=== PATIENT | male | born 2000 | race Caucasian/White ===

== ENCOUNTER 2021-07-16 18:21 | Emergency (ER) | payer OTHER, SELFPAY ==
[2021-07-16 18:23] VITALS: BP 179/76; PULSE 88; RESP 18; TEMP 36.6; O2SAT 99; BMI 25.8
--- NOTE | 2021-07-16 18:49 | EX.ED.VIS.EY ---
HPI History of Present Illness Chief Complaint: Eye Problem Informant: patient Narrative Narrative: 21-year-old male presents with bilateral eye pain. Patient states that yesterday at work he was on a machine that uses UV light. He had to get inside the machine a couple times and did not wear eye protection. He states that towards the end of his shift he began to have discomfort in the eyes and by early this morning he was having red watery painful eyes. He does not wear contacts or glasses. He does note associated blurry vision and light sensitivity [facility] Medical History (Updated 07/16/21 @ 18:[address] Agustin Chavis, ) UV keratitis no medical history Home Medications erythromycin 1 applic EACH EYE Q6H 3 Days #1 g 07/16/21 [Rx Last Taken Unknown] oxycodone-acetaminophen 1 tab PO Q6H PRN PRN 3 Days #12 tablet 07/16/21 [Rx Last Taken Unknown] Allergy/AdvReac Type Severity Reaction Status Date / Time No Known Allergies Allergy Verified 07/16/21 18:22 no surgical history Social History (Updated 07/16/21 @ 18:[address] Agustin Chavis DO) current gender identity: male Smoking Status: Never smoker ROS ROS ED Constitutional Constitutional ED: Denies chills or weight loss Eyes Eyes: Denies change in vision or diplopia ENT ENT ED: Denies ear pain, rhinorrhea or sore throat Cardiovascular Cardiovascular: Denies chest pain, orthopnea, palpitations or racing heartbeat Respiratory/Chest Respiratory/Chest: Denies cough, dyspnea or orthopnea Gastrointestinal Gastrointestinal: Denies abdominal pain, diarrhea, nausea or vomiting Genitourinary Genitourinary ED: Denies dysuria, hematuria or urinary frequency Musculoskeletal Musculoskeletal: Denies arthralgias or myalgias Integumentary Denies abscess or rash Neurologic Neurologic: Denies headache(s) or weakness Psychiatric Psychiatric: Denies anxiety, depression, suicidal ideation or suicidal thoughts Endocrine Endocrinology: Denies polydipsia, polyphagia or polyuria Allergic/Immunologic Allergic/Immunologic ED: Denies mouth swelling, tongue swelling or urticaria EXAM Physical Exam Const Vital Signs: 07/16/21 18:23 Temperature 98 F Temperature Source Temporal Pulse Rate 88 Respiratory Rate 18 Blood Pressure 179/76 H Blood Pressure Mean 110 Pulse Ox 99 Oxygen Delivery Method Room Air Positive well nourished and well developed General Appearance ED: well developed HEENT Reports normocephalic, head/scalp atraumatic, TM's clear and moist mucous membranes HEENT Narrative: There is bilateral conjunctival injection. Watery eye drainage. With fluorescein staining there are changes on the cornea consistent with UV keratitis. No foreign bodies were noted atraumatic Tympanic Membrane ED: Yes TM's clear Eyes PERRL and EOMs intact bilaterally Neck no lymphadenopathy, supple and no JVD Resp normal respiratory effort and clear to auscultation bilaterally Cardio regular rate, regular rhythm and no murmurs GI normal to inspection, nondistended, normoactive bowel sounds and non-tender Palpation: soft Back/Spine no CVA tenderness and normal ROM Extremity normal to inspection General Extremety ED: Negative for edema General Extremity: Negative for edema Neuro oriented x3 and CN's II-XII intact bilaterally Sensorium / Orientation: alert Motor Exam: strength 5/5 throughout Psych mental status grossly normal Mood & Affect: Negative for depressed or tearful Skin no rashes or lesions noted and no wounds MDM MDM MDM Narrative Medical decision making narrative: I will write for the patient have some erythromycin ophthalmic ointment as well as Ragland. Following up with ophthalmology in 3 to 5 days to ensure resolution. Discharge Plan Triage Chief Complaint: Eye Problem ED Provider: Agustin Chavis Dx/Rx/DC Orders Clinical Impression: UV keratitis Instructions: Ultraviolet Keratitis Prescriptions: New oxycodone-acetaminophen [oxycodone-acetaminophen] 1 TABLET tablet 1 tab PO Q6H PRN PRN (Reason: Pain) 3 Days Qty: 12 RF: 0 erythromycin 5 mg/gram (0.5 %) ointment 1 applic EACH EYE Q6H 3 Days Qty: 1 RF: 0 Primary Care Provider: Belén Vick Referrals: Belén Vick MD [Primary Care Provider] - Vasquez Griffin MD [STAFF PHYSICIAN] - 3-5 Days Disposition Disposition: Home, Self Care
[2021-07-16] MEDS: Fluorescein 1 MG STRIP 1 STRIP EACH EYE (18:51)
[2021-07-16] MEDS: Tetracaine 0.5% Ophthalmic Bottle 1 DRP EACH EYE (18:51)
== END 2021-07-16 19:51 | disposition home or self-care (01) ==
LOC: ED 18:55
PROVIDERS: Emergency Provider Emergency Medicine; Visit Provider Emergency Medicine
DX: H16.133 Photokeratitis, bilateral (principal); W89.9XXA Exposure to unspecified man-made visible and ultraviolet light, initial encounter; Y99.0 Civilian activity done for income or pay
CPT/HCPCS: 99282